=== PATIENT | female | born 1990 | race Hispanic/Latino ===

== ENCOUNTER 2017-08-22 05:34 | Inpatient (IN) | payer MEDICAID ==
[2017-08-21 15:35] LABS: HEMATOCRIT 31.9 % (36-48); MEAN CORPUSCULAR HEMOGLOBIN 29.3 pg (27.0-33.0); MEAN CORPUSCULAR HGB CONC 35.4 g/dL (32.0-36.0); MEAN CORPUSCULAR VOLUME 82.9 fL (79-99); PLATELET COUNT (AUTO) 268 K/uL (130-400); RED BLOOD CELL COUNT(AUTO) 3.86 MIL/uL (4.00-5.50); RED CELL DISTRIBUTION WIDTH 13.6 % (11.0-15.5); WHITE BLOOD COUNT (AUTO) 9.6 K/uL (4.8-10.8)
[2017-08-22] VITALS (17 sets, daily range): BP systolic 107–126; BP diastolic 56–72
[~2017-08-22] VITALS: Ht 149.9 cm; Wt 84.4 kg
[2017-08-22] MEDS ORDERED: CEFAZOLIN SODIUM 1 GM VIAL IVP PRN (06:15)
[2017-08-22] MEDS ORDERED: LACTATED RINGERS 1000ML 1,000 ML IV SCH (06:15)
[2017-08-22] MEDS ORDERED: LIDOCAINE HCL-MPF 2% 5ML VIAL ONE (07:04)
[2017-08-22] MEDS ORDERED: LIDOCAINE HCL 2% JELLY 5 ML ONE (07:04)
[2017-08-22] MEDS ORDERED: FENTANYL CITRATE PF 50 MCG/1 ML 2ML VIAL ONE (07:04)
[2017-08-22] MEDS ORDERED: NEOSTIGMINE METHYLSULFATE 1MG/ML IV ONE (07:04)
[2017-08-22] MEDS ORDERED: ONDANSETRON HCL 4 MG/2 ML VIAL ONE (07:04)
[2017-08-22] MEDS ORDERED: OXYTOCIN 10 USP UNITS/ML ONE ×3 (07:04→16:46)
[2017-08-22] MEDS ORDERED: DEXAMETHASONE SOD PHOSPHATE 10MG/ML 1ML VIAL ONE (07:04)
[2017-08-22] MEDS ORDERED: LIDOCAINE HCL MPF 1% 5ML VIAL ONE (07:04)
[2017-08-22] MEDS ORDERED: MIDAZOLAM HCL 1 MG/ML 2ML VIAL ONE (07:04)
[2017-08-22] MEDS ORDERED: NEOSTIGMINE 5MG/5ML SYR IV ONE (07:04)
[2017-08-22] MEDS ORDERED: ROCURONIUM BROMIDE 10MG/1ML 5ML VL ONE (07:04)
[2017-08-22] MEDS ORDERED: LIDOCAINE HCL 4% TOP SOL 50ML MM ONE (07:04)
[2017-08-22] MEDS ORDERED: GLYCOPYRROLATE 0.2 MG/ML 5 ML VIAL ONE (07:04)
[2017-08-22] MEDS ORDERED: LIDOCAINE HCL-MPF 2% 10ML AMP IJ ONE (07:04)
[2017-08-22] MEDS ORDERED: EPHEDRINE-NS PF 50MG/5ML SYRINGE IV ONE (07:05)
[2017-08-22] MEDS ORDERED: CEFAZOLIN SODIUM 1 GM VIAL IVP ONE (07:10)
[2017-08-22] MEDS ORDERED: MEPERIDINE-PF 75 MG/ML SYG ONE (09:26)
[2017-08-22] MEDS ORDERED: PROMETHAZINE HCL 25 MG/ML 1ML AMPULE IM ONE (09:26)
[2017-08-22] MEDS ORDERED: OXYTOCIN-LR 20 UNITS/1000 ML 1,000 ML IV PRN (09:48)
[2017-08-22] MEDS ORDERED: EPHEDRINE SULFATE 50 MG/ML AMPULE IVP PRN (10:00)
[2017-08-22] MEDS ORDERED: PROMETHAZINE HCL 25 MG/ML 1ML AMPULE IM PRN ×2 (10:00)
[2017-08-22] MEDS ORDERED: ONDANSETRON HCL 4 MG/2 ML VIAL IVP PRN ×2 (10:00)
[2017-08-22] MEDS ORDERED: HYDROCODONE/ACETAMINOPHEN 5/325 MG TAB PO PRN (10:00)
[2017-08-22] MEDS ORDERED: ONDANSETRON HCL 4 MG/2 ML 8 MG in SODIUM CHLORIDE 0.9% 50 ML IVP NR (10:00)
[2017-08-22] MEDS ORDERED: SODIUM CHLORIDE 0.9% 10 ML VIAL IVP PRN (10:00)
[2017-08-22] MEDS ORDERED: DiphenhydrAMINE HCL 50 MG/ML VIAL IVP PRN (10:00)
[2017-08-22] MEDS ORDERED: METOCLOPRAMIDE 10 MG/2 ML VIAL IVP PRN (10:00)
[2017-08-22] MEDS ORDERED: MORPHINE SULFATE 2 MG/ML 1ML SYG IVP PRN (10:00)
[2017-08-22] MEDS ORDERED: NALOXONE HCL 0.4 MG/1 ML ML IVP PRN (10:00)
[2017-08-22] MEDS ORDERED: MEPERIDINE-PF 75 MG/ML SYG IM PRN (10:00)
[2017-08-22] MEDS: HYDROCODONE/ACETAMINOPHEN 5/325 MG TAB PO PRN (20:36)
[2017-08-22] MEDS: DEXTROSE 5 %-0.45 % NACL 1,000 ML IV PRN (23:56)
[2017-08-23 03:36] VITALS: BP 105/62
[2017-08-23] MEDS: HYDROCODONE/ACETAMINOPHEN 5/325 MG TAB PO PRN (04:31)
[2017-08-23 05:53] LABS: HEMATOCRIT 29.7 % (36-48); PLATELET COUNT (AUTO) 249 K/uL (130-400); RED BLOOD CELL COUNT(AUTO) 3.57 MIL/uL (4.00-5.50); WHITE BLOOD COUNT (AUTO) 14.6 K/uL (4.8-10.8)
[2017-08-23] MEDS: DEXTROSE 5 %-0.45 % NACL 1,000 ML IV PRN (06:32)
[2017-08-23] MEDS ORDERED: LANOLIN 30GM OINTMENT TP PRN (07:30)
[2017-08-23] MEDS ORDERED: BISACODYL 10 MG SUPP.RECT RC PRN (07:30)
[2017-08-23] MEDS ORDERED: DIPHENHYDRAMINE HCL 25 MG CAPSULE PO PRN (07:30)
[2017-08-23 07:45] VITALS: BP 104/62
[2017-08-23] MEDS: SIMETHICONE 80 MG TAB.CHEW PO PRN ×2 (09:02→19:57)
[2017-08-23] MEDS: IBUPROFEN 600 MG TABLET PO PRN ×2 (09:02→15:29)
[2017-08-23] MEDS: DOCUSATE SODIUM 100 MG CAP PO SCH ×2 (09:02→19:57)
[2017-08-23] MEDS: MEASLES/MUMPS/RUBELLA VACCINE, LIVE 0.5 ML/VIAL SQ SCH (09:03)
[2017-08-23] MEDS: DIPH,PERTUSS(ACELL),TET VAC/PF 0.5 ML VIAL IM SCH (09:03)
[2017-08-23] MEDS: ACETAMINOPHEN-CODEINE 300/30MG TAB PO PRN ×2 (10:28→19:57)
[2017-08-23 11:52] VITALS: BP 97/62
[2017-08-23 15:42] VITALS: BP 97/72
[2017-08-23 19:20] VITALS: BP 102/57
[2017-08-23 23:50] VITALS: BP 97/58
[2017-08-24 03:12] VITALS: BP 98/59
[2017-08-24] MEDS: IBUPROFEN 600 MG TABLET PO PRN ×2 (03:57→09:09)
[2017-08-24 04:14] LABS: HEPATITIS Bs ANTIGEN SCREEN P Negative (Negative)
[2017-08-24] MEDS: DIPH,PERTUSS(ACELL),TET VAC/PF 0.5 ML VIAL IM SCH ×2 (06:28→07:34)
[2017-08-24] MEDS: MEASLES/MUMPS/RUBELLA VACCINE, LIVE 0.5 ML/VIAL SQ SCH ×2 (06:38→07:34)
[2017-08-24 07:43] VITALS: BP 100/62
[2017-08-24] MEDS: SIMETHICONE 80 MG TAB.CHEW PO PRN (09:08)
[2017-08-24] MEDS: DOCUSATE SODIUM 100 MG CAP PO SCH (09:08)
[2017-08-24 12:08] VITALS: BP 121/81
[2017-08-24] MEDS: ACETAMINOPHEN-CODEINE 300/30MG TAB PO PRN (12:11)
== END 2017-08-24 14:10 | disposition home or self-care (01) | DRG 540 ==
LOC: LDH 05:34 → EDSTATUS 07:00 → WSH 08:50
PROVIDERS: ADMIT Obstetrics & Gynecology; ATTEND Obstetrics & Gynecology
PROC: 3E0234Z Introduction of Serum, Toxoid and Vaccine into Muscle, Percutaneous Approach (ICD-10-PCS; 2017-08-22)
PROC: 3E0134Z Introduction of Serum, Toxoid and Vaccine into Subcutaneous Tissue, Percutaneous Approach (ICD-10-PCS; 2017-08-22)
PROC: 10D00Z1 Extraction of Products of Conception, Low, Open Approach (ICD-10-PCS; principal; 2017-08-22 07:05)
DX: O34.211 Maternal care for low transverse scar from previous cesarean delivery (principal); K66.0 Peritoneal adhesions (postprocedural) (postinfection); O99.824 Streptococcus B carrier state complicating childbirth; Z37.0 Single live birth; Z23 Encounter for immunization; Z3A.38 38 weeks gestation of pregnancy
CPT/HCPCS: 36415; 59510; 85027; 86592; 86850; 86900; 86901; 87340; 90707; 90715; A4344; A4450; A4606; J0690; J1100; J2175; J2250; J2405; J2550; J2590; J2710; J3010; J3490; J7120

== ENCOUNTER 2017-08-25 11:40 | Emergency (ER) | payer MEDICAID ==
[2017-08-25] MEDS ORDERED: SODIUM CHLORIDE 0.9% 500ML 1,000 ML IV ONE (11:57)
[2017-08-25] MEDS ORDERED: KETOROLAC TROMETHAMINE 15MG/ML ONE (11:57)
[2017-08-25] MEDS ORDERED: HYDROCORTISONE SOD SUCCINATE 100 MG/2 ML VIAL ONE (12:09)
[2017-08-25] MEDS ORDERED: METOCLOPRAMIDE 10 MG/2 ML VIAL ONE (13:16)
== END 2017-08-25 14:18 | disposition home or self-care (01) ==
LOC: EDH 11:40
DX: G97.1 Other reaction to spinal and lumbar puncture (principal); R10.9 Unspecified abdominal pain; Z98.890 Other specified postprocedural states; Z79.899 Other long term (current) drug therapy
CPT/HCPCS: 96365; 96375; 99284; J1720; J1885; J2765; J7040